=== PATIENT | female | born 1990 | race Two or more races ===

== ENCOUNTER 2024-08-02 00:37 | Emergency (ER) | payer SELFPAY ==
[~2024-08-02] VITALS: Ht 162.6 cm; Wt 119.9 kg
--- NOTE | 2024-08-02 01:08 | ED.PDOC ---
History of Present Illness HPI Comments 33-year-old female presents with a chief complaint of flu-like symptoms x onset Friday (07/30/2024). Patient is presenting with nasal congestion and dry cough. Patient mentions that her household is sick and experiencing the same symptoms. Patient mentions that her children were positive for Influenza A. No other symptoms or modifying factors present at this time. 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 Family History Family History: Reviewed,noncontributory to illness Social History Smoker: Non-Smoker Alcohol: Denies ETOH Use Drugs: Denies Drug Use Lives In: Home Constitutional: denies: chills, diaphoresis, fatigue, fever, malaise, sweats, weakness, others EENTM: reports: nose congestion; denies: blurred vision, double vision, ear bleeding, ear discharge, ear drainage, ear pain, ear ringing, eye pain, eye redness, hearing loss, mouth pain, mouth swelling, nasal discharge, nose bleeding, nose pain, photophobia, tearing, throat pain, throat swelling, voice changes, others Respiratory: reports: cough; denies: hemoptysis, orthopnea, SOB at rest, shortness of breath, SOB with excertion, stridor, wheezing, others Cardiovascular: denies: chest pain, dizzy spells, diaphoresis, Dyspnea on exertion, edema, irregular heart beat, left arm pain, lightheadedness, palpitations, PND, syncope, others Gastrointestinal: denies: abdomen distended, abdominal pain, blood streaked bowels, constipated, diarrhea, dysphagia, difficulty swallowing, hematemesis, melena, nausea, poor appetite, poor fluid intake, rectal bleeding, rectal pain, vomiting, others Genitourinary: denies: abnormal vagina bleeding, burning, dyspareunia, dysuria, flank pain, frequency, hematuria, incontinence, pain, , vagina discharge, urgency, others Neurological: denies: dizziness, fainting, headache, left sided numbness, left sided weakness, numbness, paresthesia, pre-existing deficit, right sided numbness, right sided weakness, seizure, speech problems, tingling, tremors, weakness, others Musculoskeletal: denies: back pain, gout, joint pain, joint swelling, muscle pain, muscle stiffness, neck pain, others Integumetry: denies: bruises, change in color, change in hair/nails, dryness, laceration, lesions, lumps, rash, wounds, others Allergic/Immunocompromised: denies: Difficulty Healing, Frequent Infections, Hives, Itching, others Hematologic/Lymphatic: denies: anemia, blood clots, easy bleeding, easy bruising, swollen glands, others Endocrine: denies: excessive hunger, excessive sweating, excessive thirst, excessive urination, flushing, intolerance to cold, intolerance to heat, unexplained weight gain, unexplained weight loss, others Psychiatric: denies: anxiety, bipolar disorder, depression, hopeless, panic disorder, schizophrenia, sleepless, suicidal, others All Other Systems: Reviewed and Negative Physical Exam General Appearance: No Apparent Distress, Obese HEENT: Normal ENT Inspection, Pharynx Normal, TMs Normal Neck: Full Range of Motion, Non-Tender, Normal, Normal Inspection Respiratory: Chest Non-Tender, Lungs Clear, No Accessory Muscle Use, No Respiratory Distress, Normal Breath Sounds Cardiovascular: No Edema, No JVD, No Murmur, No Gallop, Normal Peripheral Pulses, Regular Rate/Rhythm Breast Exam: Deferred Gastrointestinal: No Organomegaly, Non Tender, No Pulsatile Mass, Normal Bowel Sounds, Soft Genitalia: Deferred Pelvic: Deferred Rectal: Deferred Extremities: No calf tenderness, Normal capillary refill, Normal inspection, Normal range of motion, Non-tender, No pedal edema Musculoskeletal : Apperance: Normal Neurologic: Alert, die sizer II-XII nml as Tested, No Motor Deficits, Normal Affect, Normal Mood, No Sensory Deficits Cerebellar Function: Normal Reflexes: Normal Skin: Dry, Normal Color, Warm Lymphatic: No Adenopathy Was a procedure done? Was a procedure done?: No Differential Dx Considerations may include: Viral syndrome, pneumonia, flu X-Ray, Labs, Meds, VS Vital Signs Date Time Temp Pulse Resp B/P (MAP) Pulse Ox O2 Delivery O2 Flow Rate FiO2 08/02/24 00:47 97.7 89 18 162/116 (131) 98 Lab Test 08/02/24 01:56 Range/Units White Blood Count 5.0 4.4-10.8 10^3/uL Red Blood Count 4.71 4.0-5.20 10^6/uL Hemoglobin 12.5 12.2-16.2 g/dL Hematocrit 37.6 36.0-46.0 % Mean Corpuscular Volume 79.8 L 80.0-100.0 fL Mean Corpuscular Hemoglobin 26.5 L 28.0-32.0 pg Mean Corpuscular Hemoglobin Concent 33.2 32.0-36.0 g/dL Red Cell Distribution Width 15.8 H 11.8-14.3 % Platelet Count 270 140-450 10^3/uL Mean Platelet Volume 7.4 6.9-10.8 fL Neutrophils (%) (Auto) 44.1 37.0-80.0 % Lymphocytes (%) (Auto) 37.6 10.0-50.0 % Monocytes (%) (Auto) 12.8 H 0.0-12.0 % Eosinophils (%) (Auto) 4.5 0.0-7.0 % Basophils (%) (Auto) 1.0 0.0-2.0 % Neutrophils # (Auto) 2.2 1.6-8.6 10 ^3/uL Lymphocytes # (Auto) 1.9 0.4-5.4 10 ^3/uL Monocytes # (Auto) 0.6 0-1.3 10 ^3/uL Eosinophils # (Auto) 0.2 0-0.8 10 ^3/uL Basophils # (Auto) 0.1 0-0.2 10 ^3/uL Nucleated Red Blood Cells 0.1 % Sodium Level 140 136-145 mmol/L Potassium Level 3.9 3.5-5.1 mmol/L Chloride Level 107 98-107 mmol/L Carbon Dioxide Level 27 20-31 mmol/L Anion Gap 6 5-15 Blood Urea Nitrogen 8 L 9-23 mg/dL Creatinine 0.52 L 0.550-1.02 mg/dL Glomerular Filtration Rate Calc 127 >90 mL/min BUN/Creatinine Ratio 15.4 10.0-20.0 Serum Glucose 151 H 74-106 mg/dL Calcium Level 9.4 8.7-10.4 mg/dL Time of 1ST Reevaluation: 01:18 Reevaluation 1ST: Unchanged Patient Education/Counseling: Diagnosis, Treatment, Prognosis Family Education/Counseling: No Family Present Departure 1 Departure Time of Disposition: 04:28 (Patient likely has a virus. Lungs are clear no sign of pneumonia. We will discharge patient home with outpatient follow up) Impression: Primary Impression: Viral syndrome Disposition: 01 HOME / SELF CARE / HOMELESS Condition: Stable Additional Instructions: You likely have a viral illness. It is important to stay well rested and well hydrated. You can take Tylenol and Motrin as needed for pain and fever. For a sore throat you can drink warm tea with honey. You can take [id number] pseudoephedrine for nasal congestion. He should follow up with your regular doctor within 1 week to ensure you are doing better. If your symptoms worsen or you have any other concerns please return to the emergency room. Discharged With: Self Critical Care Note Critical Care Time?: No Stability Stability form required: No I personally scribed for DANITZA CULVER MD ([email or web address]) on 08/02/24 at 01:08. Electronically submitted by Govind Chatman ([email or web address]). DANITZA CULVER MD Aug 02, 2024 01:08
--- NOTE | 2024-08-02 01:42 | DVH ---
CHEST RADIOGRAPH Indication: sob Technique: Frontal and lateral view of the chest was obtained Comparison: None FINDINGS: Lines and Tubes: None Lungs: Clear Pleura: No effusion. No pneumothorax. Cardiomediastinal contours: Unremarkable Bones: Unremarkable IMPRESSION: 1. No evidence of acute disease.
[2024-08-02 02:09] LABS: Eosinophils # (auto) 0.2 10 ^3/uL (0-0.8); Hemoglobin 12.5 g/dL (12.2-16.2); Lymphocytes # (auto) 1.9 10 ^3/uL (0.4-5.4); Monocytes # (auto) 0.6 10 ^3/uL (0-1.3); Monocytes % (auto) 12.8 % (0.0-12.0); Nucleated Red Blood Cells % 0.1 %; Platelet Count (auto) 270 10^3/uL (140-450)
[2024-08-02 02:11] LABS: Basophils # (auto) 0.1 10 ^3/uL (0-0.2); Eosinophils % (auto) 4.5 % (0.0-7.0); Hematocrit 37.6 % (36.0-46.0); Lymphocytes % (auto) 37.6 % (10.0-50.0); Mean Corpuscular Hemoglobin 26.5 pg (28.0-32.0); Mean Corpuscular Hgb Conc. 33.2 g/dL (32.0-36.0); Mean Corpuscular Volume 79.8 fL (80.0-100.0); Neutrophils # (auto) 2.2 10 ^3/uL (1.6-8.6); Neutrophils % (auto) 44.1 % (37.0-80.0); Red Blood Cells 4.71 10^6/uL (4.0-5.20); Red Cell Distribution Width 15.8 % (11.8-14.3)
[2024-08-02 02:16] LABS: Chloride 107 mmol/L (98-107); Potassium 3.9 mmol/L (3.5-5.1); Sodium 140 mmol/L (136-145)
[2024-08-02 02:17] LABS: Anion Gap 6 (5-15); Carbon Dioxide 27 mmol/L (20-31)
[2024-08-02 02:18] LABS: Calcium 9.4 mg/dL (8.7-10.4)
[2024-08-02 02:23] LABS: BUN/Creatinine Ratio 15.4 (10.0-20.0); Blood Urea Nitrogen 8 mg/dL (9-23); Glucose 151 mg/dL (74-106)
[2024-08-02] MEDS: ACETAMINOPHEN 325 MG TAB PO ONE (05:00)
[2024-08-02] MEDS: KETOROLAC TROMETH 30 MG/ML 1ML VIAL IM ONE (05:00)
[2024-08-02 05:48] VITALS: BP 153/97; PULSE 83; RESP 18; TEMP 97.9; O2SAT 95
== END 2024-08-02 05:51 | disposition home or self-care (01) ==
LOC: ER 00:37
DX: J10.1 Influenza due to other identified influenza virus with other respiratory manifestations (principal)
CPT/HCPCS: 36415; 71046; 80048; 85025; 96372; 99284; J1885

== ENCOUNTER 2025-03-31 00:57 | Inpatient (IN) | payer OTHER ==
[~2025-03-31] VITALS: Ht 160 cm; Wt 108.0 kg
--- NOTE | 2025-03-31 02:16 | ED.PDOC ---
GI ASSESSMENT HPI Comments HPI: 34 year old female presents to the emergency department with a chief complaint of abdominal pain onset 2 day. Patient states she has been experiencing upper abdominal pain as well as nausea, vomiting, diarrhea for the past 2 days. She noticed symptoms worsened the past 6 hours. She has been on Ozempic for the past 3 months, dose was raised to 1 mg 2 days ago, prior to symptoms. She noticed vomit is a dark red color, has about 3 episodes of N/V a day, diarrhea is black, has about 12 episodes a day. She has taken Tylenol, Imodium for symptoms with no improvement. Denies chest pain, shortness of breath, dizziness, fever, chills, dysuria, hematuria, recent travel, sick contact. No other symptoms or modifying factors present at this time. Initial Vitals BP: 149/96 HR: 88 RR: 18 O2: 98% Temp: 98.3 F Past Medical History: Denies Past Surgical History: cholecystectomy Social History: Denies ETOH, smoking, and drug use. Medications: Ozepmic Allergies: NKDA HPI: Poor Historian. REVIEW OF SYSTEMS: CONSTITUTIONAL: Denies acute: fever, diaphoresis, chills, generalized weakness. HEAD: Denies acute: headache, photophobia Eyes: Denies acute: Double vision, vision loss, eye pain, eye discharge. EARS: Denies acute: tinnitus, hearing loss, ear discharge, ear pain, THROAT: Denies acute: sore throat, swelling, difficulty swallowing , pain with swallowing, change in voice. NECK: Denies acute: neck pain, neck swelling, stiff neck. HEART: Denies acute : chest pain, palpitations, LUNGS: Denies acute: SOB, wheezing, cough, hemoptysis ABDOMEN: Denies acute: hematemesis, hematochezia SKIN: Denies acute: rash, redness, lesions, itchiness. EXTREMITIES: Denies acute: calf pain, numbness, tingling, weakness, denies pain in extremity. Denies acute: Low back pain. Neuro: Denies acute: focal neurological deficit, motor or sensory focal neurological deficit, tremors, seizure like activity, confusion, dizziness, change in mental status, loss of bowel or bladder function, cauda equina like symptoms. : Denies acute: dysuria, hematuria, flank pain, increase in urinary frequency. PSYCH: Denies acute: hallucination, suicidal ideation, homicidal ideation. FEMALE: Denies acute: abnormal vaginal bleeding, foul odor, unusual discharge. PHYSICAL EXAM: General: ---[id number]-----acute distress, awake and alert. Head: normocephalic, atraumatic. Neck: supple, trachea is midline, no swelling. Throat: Normal phonation. Eyes:, no erythema, no purulent discharge, no proptosis, no icterus. Heart: regular rate, regular rhythm, no significant murmur appreciated. Lungs: no apparent respiratory distress, Able to speak in full sentences. No wheezing, no rhonchi, no crackles. No stridors Clear to auscultation bilaterally. Abdomen: Epigastric/right upper quadrant tender to palpation, non distended, soft, no guarding, no rebound, + bowel sounds. Obese Neuro: Awake, Alert, oriented to name, self, situation, follows commands GCS=15. Speech is normal. Skin: no petechia, no purpura, no cyanosis, non-pale, not jaundice. Lower extremities: --no - Pitting edema no deformity, no focal swelling, no calf TTP. Makes eye contact. moves all four extremities. Face: no apparent facial droop. Ambulating in the ED independently. ED COURSE: DISCLAIMER: This medical document was created using an electronic medical record system with voice recognition software and computerized dictation system. Although this document has been carefully reviewed, there might still be some phonetic and typographical errors. Occasional wrong-word or "sound-alike" substitutions may have occurred due to the inherent limitations of voice recognition software. These areas are purely typographical due to imperfections of the software programs and do not reflect any compromise in the patient's medical care. Please read the chart carefully and recognize, using context, where these substitutions have occurred. Chief Complaint: Abdominal Pain Time Seen by MD: 02:30 Reviewed Notes: Medications, Allergies Allergies: Coded Allergies: NO KNOWN ALLERGIES (Unverified , 08/02/24) Home Meds Active Scripts Ondansetron Odt 4MG Tab (ZOFRAN PO) 4 Mg Tb, 4 MG PO Q8HPRN PRN for 3 Days, #9 TAB ODT TAB-DISSOLVE IN MOUTH, THEN SWALLOW Prov:SAYDA TOUSSAINT DO 03/31/25 Information Source: Patient Mode of Arrival: Ambulatory Timing: Days Duration: Since onset Prehospital treatment: None Quality: Sharp Vomitus: Other (dark red ) Stool: Black Severity: Moderate Recent: None Recent Hx of: None Pain Location: Other Modifying Factors: Nothing Associated sign and symptoms: Nausea, Vomiting, Diarrhea, Abdominal Pain Past Medical History PAST MEDICAL HISTORY: Denies Surgical History: Cholecystectomy 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 Was a procedure done?: No X-Ray, Labs, Meds, VS Vital Signs Date Time Temp Pulse Resp B/P (MAP) Pulse Ox O2 Delivery O2 Flow Rate FiO2 03/31/25 03:13 98.4 98 16 123/87 (99) 96 98.4 03/31/25 00:57 98.3 88 18 149/96 98 98.3 Lab Test 03/31/25 05:30 03/31/25 01:58 Range/Units Urine Color Pending Urine Clarity Pending Urine pH Pending Urine Specific Harrison Pending Urine Protein Pending Urine Ketones Pending Urine Blood Pending Urine Nitrite Pending Urine Bilirubin Pending Urine Urobilinogen Pending Urine Leukocyte Esterase Pending Urine RBC Pending Urine Microscopic WBC Pending Urine Squamous Epithelial Cells Pending Urine Bacteria Pending Urine Glucose Pending Urine Test Pending White Blood Count 14.9 H 4.4-10.8 10^3/uL Red Blood Count 5.47 H 4.0-5.20 10^6/uL Hemoglobin 14.3 12.2-16.2 g/dL Hematocrit 42.9 36.0-46.0 % Mean Corpuscular Volume 78.5 L 80.0-100.0 fL Mean Corpuscular Hemoglobin 26.1 L 28.0-32.0 pg Mean Corpuscular Hemoglobin Concent 33.3 32.0-36.0 g/dL Red Cell Distribution Width 16.6 H 11.8-14.3 % Platelet Count 405 140-450 10^3/uL Mean Platelet Volume 7.3 6.9-10.8 fL Neutrophils (%) (Auto) 78.5 37.0-80.0 % Lymphocytes (%) (Auto) 13.3 10.0-50.0 % Monocytes (%) (Auto) 6.4 0.0-12.0 % Eosinophils (%) (Auto) 1.7 0.0-7.0 % Basophils (%) (Auto) 0.1 0.0-2.0 % Neutrophils # (Auto) 11.7 H 1.6-8.6 10 ^3/uL Lymphocytes # (Auto) 2.0 0.4-5.4 10 ^3/uL Monocytes # (Auto) 0.9 0-1.3 10 ^3/uL Eosinophils # (Auto) 0.3 0-0.8 10 ^3/uL Basophils # (Auto) 0 0-0.2 10 ^3/uL Nucleated Red Blood Cells 0.0 % Sodium Level 136 136-145 mmol/L Potassium Level 3.5 3.5-5.1 mmol/L Chloride Level 104 98-107 mmol/L Carbon Dioxide Level 20 20-31 mmol/L Anion Gap 12 5-15 Blood Urea Nitrogen 16 9-23 mg/dL Creatinine 0.66 0.550-1.02 mg/dL Glomerular Filtration Rate Calc 119 >90 mL/min BUN/Creatinine Ratio 24.2 H 10.0-20.0 Serum Glucose 129 H 74-106 mg/dL Lactic Acid Level 1.0 0.4-2.0 mmol/L Calcium Level 9.6 8.7-10.4 mg/dL Magnesium Level 2.1 1.6-2.6 mg/dL Total Bilirubin 0.8 0.2-1.0 mg/dL Aspartate Amino Transferase (AST) 17 13-40 U/L Alanine Aminotransferase (ALT) 15 7-40 U/L Alkaline Phosphatase 95 46-116 U/L Troponin I High Sensitivity < 3 L </=34 ng/L Total Protein 8.9 H 5.7-8.2 g/dL Albumin 4.9 H 3.2-4.8 g/dL Lipase 44 12-53 U/L Current Medications Medications (Trade) Dose Ordered Sig/Tuan Route Start Time Stop Time Status Last Admin Sodium Chloride 1,000 ml @ 1,000 mls/hr Q1H ONCE IV 03/31/25 01:45 03/31/25 02:44 DC 03/31/25 05:[address] [address] Ph: [phone] DIAGNOSTIC IMAGING Diagnostic Imaging Report : [id number] Signed PATIENT: TITA NAIKACCT: [id number] UNIT: [id number] : 1990 LOC: ER ROOM / BED: / AGE / SEX: 34 / F ADM STATUS: REG ER SERVICE 0305 ORDERING PHYSICIAN: SAYDA TOUSSAINT DO PROCEDURE(s): ABPL - CT AB PEL WO CON-NO ORAL OR IV REASON: upper abd pain, n/v/d ORDER NUMBER(s): [id number], ACCESSION NUMBER(s): [id number] Exam: CT CT AB PEL WO CON-NO ORAL OR IV History: upper abd pain, n/v/d Comparison Study: None TECHNIQUE: Multidetector CT of the abdomen was performed from lung bases to pubic symphysis. Imaging was performed without IV contrast. Axial, coronal and sagittal multiplanar reformats were obtained from the axial data set by the technologist. Radiation Dose Information: Dose-length product is 1371.67 mGy*cm FINDINGS: Limited sections of the lung bases demonstrate no focal pulmonary mass. The liver, spleen, pancreas, and both adrenal glands demonstrate no acute findings. The gallbladder is removed. The stomach is unremarkable. The small bowel loops are not dilated. The appendix is normal. No colonic obstruction. Colonic diverticulosis without acute diverticulitis. Bilateral kidneys are unremarkable. No hydronephrosis. The urinary bladder is partially distended. No significant lymphadenopathy. 4.7 x 4.8 cm left ovarian cyst. No free air or free fluid. The aorta and IVC demonstrate no acute findings. Visualized osseous structures demonstrate no acute abnormality. IMPRESSION: 1. No acute intra-abdominal process. 2. Colonic diverticulosis without acute diverticulitis. ATED BY: LUCY AIKEN MD DICTATED DATE/TIME: 03/31/25455 SIGNED BY: LUCY AIKEN MD SIGNED DATE/TIME: 03/31/25455 CC: [address], [place] - [address] Ph: [phone] DIAGNOSTIC IMAGING Diagnostic Imaging Report : [id number] Signed PATIENT: TITA NAIKACCT: [id number] UNIT: [id number] : 1990 LOC: ER ROOM / BED: / AGE / SEX: 34 / F ADM STATUS: REG ER SERVICE 0143 ORDERING PHYSICIAN: SAYDA TOUSSAINT DO PROCEDURE(s): ABDL - ABDOMEN LIMITED REASON: upper abd pain ORDER NUMBER(s): [id number], ACCESSION NUMBER(s): [id number] INDICATION: upper abd pain TECHNIQUE: Multiple real-time sonographic images were obtained of the Abdomen. COMPARISON: None FINDINGS: PANCREAS: not well seen LIVER: measures 17.4 cm. increased echotexture. No mass. GALLBLADDER: surgically absent COMMON BILE DUCT: not well visualized RIGHT KIDNEY: Measures 11.9 cm. Normal in echogenicity. No mass. No urinary stones. No hydronephrosis. IMPRESSION: 1. Limited examination due to body habitus. 2. Hepatic steatosis and hepatomegaly. ATED BY: LUCY AIKEN MD DICTATED DATE/TIME: 03/31/25312 SIGNED BY: LUCY AIKEN MD SIGNED DATE/TIME: 03/31/25312 CC: Time of 1ST Reevaluation: 03:00 Reevaluation 1ST: Unchanged Patient Education/Counseling: Diagnosis, Treatment Family Education/Counseling: No Family Present Comments I placed the patient up for admission for possible GI bleed versus other etiologies. Departure 1 Departure Time of Disposition: 05:11 Impression: Primary Impression: Medication adverse effect Qualified Codes: T50.905A - Adverse effect of unspecified drugs, medicaments and biological substances, initial encounter Additional Impressions: Abdominal pain Nausea vomiting and diarrhea Melena Disposition: ADMITTED INPATIENT Admit to: [facility] Condition: Guarded Additional Instructions: Additional instructions: You MUST follow-up with your primary care/family doctor in 1 to 2 days. If you are unable to see your primary care/family doctor, please return to our emergency room for re-assessment and re-evaluation in 1 to 2 days. Return to the emergency room here in our facility or to the nearest ER [facility] if your symptoms change or worsen. CONSULTATIONS: you MUST Follow-up for consultation as soon as possible with: -gastroenterology in 1-2 days. Please call for appointment You MUST call the consultants office yourself to make an appointment. You may need to arrange that through your insurance and/or your primary/family doctor. If you are unable to see the crop consultant in 1 to 2 days, you must return to our emergency room (or any other ER of your choice) for re-assessment and re- evaluation. Adequate fluid hydration. Avoid fatty greasy spicy food. Avoid caffeinated products. Avoid NSAIDs. Below is a copy of your radiological report for follow up: [place] [address] Ph: [phone] DIAGNOSTIC IMAGING Diagnostic Imaging Report : [id number] Signed PATIENT: TITA NAIK ACCT: [id number] UNIT: [id number] : 1990 LOC: ER ROOM / BED: / AGE / SEX: 34 / F ADM STATUS: REG ER SERVICE 0305 ORDERING PHYSICIAN: SAYDA TOUSSAINT DO PROCEDURE(s): ABPL - CT AB PEL WO CON-NO ORAL OR IV REASON: upper abd pain, n/v/d ORDER NUMBER(s): [id number], ACCESSION NUMBER(s): [id number] Exam: CT CT AB PEL WO CON-NO ORAL OR IV History: upper abd pain, n/v/d Comparison Study: None TECHNIQUE: Multidetector CT of the abdomen was performed from lung bases to pubic symphysis. Imaging was performed without IV contrast. Axial, coronal and sagittal multiplanar reformats were obtained from the axial data set by the technologist. Radiation Dose Information: Dose-length product is 1371.67 mGy*cm FINDINGS: Limited sections of the lung bases demonstrate no focal pulmonary mass. The liver, spleen, pancreas, and both adrenal glands demonstrate no acute findings. The gallbladder is removed. The stomach is unremarkable. The small bowel loops are not dilated. The appendix is normal. No colonic obstruction. Colonic diverticulosis without acute diverticulitis. Bilateral kidneys are unremarkable. No hydronephrosis. The urinary bladder is partially distended. No significant lymphadenopathy. 4.7 x 4.8 cm left ovarian cyst. No free air or free fluid. The aorta and IVC demonstrate no acute findings. Visualized osseous structures demonstrate no acute abnormality. IMPRESSION: 1. No acute intra-abdominal process. 2. Colonic diverticulosis without acute diverticulitis. ATED BY: LUCY AIKEN MD DICTATED DATE/TIME: 03/31/25455 SIGNED BY: LUCY AIKEN MD SIGNED DATE/TIME: 03/31/25455 CC: [place] [address] Ph: [phone] DIAGNOSTIC IMAGING Diagnostic Imaging Report : [id number] Signed PATIENT: TITA NAIK ACCT: [id number] UNIT: [id number] : 1990 LOC: ER ROOM / BED: / AGE / SEX: 34 / F ADM STATUS: REG ER SERVICE 014 ORDERING PHYSICIAN: SAYDA TOUSSAINT DO PROCEDURE(s): ABDL - ABDOMEN LIMITED REASON: upper abd pain ORDER NUMBER(s): [id number], ACCESSION NUMBER(s): [id number] INDICATION: upper abd pain TECHNIQUE: Multiple real-time sonographic images were obtained of the Abdomen. COMPARISON: None FINDINGS: PANCREAS: not well seen LIVER: measures 17.4 cm. increased echotexture. No mass. GALLBLADDER: surgically absent COMMON BILE DUCT: not well visualized RIGHT KIDNEY: Measures 11.9 cm. Normal in echogenicity. No mass. No urinary stones. No hydronephrosis. IMPRESSION: 1. Limited examination due to body habitus. 2. Hepatic steatosis and hepatomegaly. ATED BY: LUCY AIKEN MD DICTATED DATE/TIME: 03/31/25312 SIGNED BY: LUCY AIKEN MD SIGNED DATE/TIME: 03/31/25312 CC: e-Prescriptions Ondansetron Odt 4MG Tab (ZOFRAN PO) 4 Mg Tb 4 MG PO Q8HPRN PRN for 3 Days, #9 TAB ODT TAB-DISSOLVE IN MOUTH, THEN SWALLOW Prov: SAYDA TOUSSAINT DO 03/31/25 Discharged With: Self Critical Care Note Critical Care Time?: No I personally scribed for SAYDA TOUSSAINT DO ([email or web address]) on 03/31/25 at 02:16. Electronically submitted by Megha Pickens ([email or web address]). I personally scribed for SAYDA TOUSSAINT DO ([email or web address]) on 03/31/25 at 02:35. Electronically submitted by Megha Pickens ([email or web address]). I personally scribed for SAYDA TOUSSAINT DO ([email or web address]) on 03/31/25 at 02:42. Electronically submitted by Megha Pickens ([email or web address]). I personally scribed for SYADA TOUSSAINT DO ([email or web address]) on 03/31/25 at 05:07. Electronically submitted by Megha Pickens ([email or web address]). I personally scribed for SAYDA TOUSSAINT DO ([email or web address]) on 03/31/25 at 05:13. Electronically submitted by Megha Pickens ([email or web address]). SAYDA TOUSSAINT DO Mar 31, 2025 02:16
[2025-03-31 02:26] LABS: Nucleated Red Blood Cells % 0.0 %
[2025-03-31 02:29] LABS: Hematocrit 42.9 % (36.0-46.0); Hemoglobin 14.3 g/dL (12.2-16.2); Mean Corpuscular Hemoglobin 26.1 pg (28.0-32.0); Mean Corpuscular Volume 78.5 fL (80.0-100.0)
[2025-03-31 02:35] LABS: Alanine Aminotransferase 15 U/L (7-40); Alkaline Phosphatase 95 U/L (46-116); Anion Gap 12 (5-15); BUN/Creatinine Ratio 24.2 (10.0-20.0); Blood Urea Nitrogen 16 mg/dL (9-23); Calcium 9.6 mg/dL (8.7-10.4); Carbon Dioxide 20 mmol/L (20-31); Chloride 104 mmol/L (98-107); Lipase 44 U/L (12-53); Magnesium 2.1 mg/dL (1.6-2.6); Potassium 3.5 mmol/L (3.5-5.1); Sodium 136 mmol/L (136-145)
[2025-03-31 02:36] LABS: Bilirubin, Total 0.8 mg/dL (0.2-1.0)
[2025-03-31 02:38] LABS: Albumin 4.9 g/dL (3.2-4.8); Glucose 129 mg/dL (74-106); Total Protein 8.9 g/dL (5.7-8.2)
--- NOTE | 2025-03-31 03:15 | DVH ---
INDICATION: upper abd pain TECHNIQUE: Multiple real-time sonographic images were obtained of the Abdomen. COMPARISON: None FINDINGS: PANCREAS: not well seen LIVER: measures 17.4 cm. increased echotexture. No mass. GALLBLADDER: surgically absent COMMON BILE DUCT: not well visualized RIGHT KIDNEY: Measures 11.9 cm. Normal in echogenicity. No mass. No urinary stones. No hydronephrosi s. IMPRESSION: 1. Limited examination due to body habitus. 2. Hepatic steatosis and hepatomegaly.
--- NOTE | 2025-03-31 04:58 | DVH ---
Exam: CT CT AB PEL WO CON-NO ORAL OR IV History: upper abd pain, n/v/d Comparison Study: None TECHNIQUE: Multidetector CT of the abdomen was performed from lung bases to pubic symphysis. Imaging was performed without IV contrast. Axial, coronal and sagittal multiplanar reformats were obtained fr om the axial data set by the technologist. Radiation Dose Information: Dose-length product is 1371.67 mGy*cm FINDINGS: Limited sections of the lung bases demonstrate no focal pulmonary mass. The liver, spleen, pancreas, and both adrenal glands demonstrate no acute findings. The gallbladder is removed. The stomach is unremarkable. The small bowel loops are not dilated. The appendix is normal. No colonic obstruction. Colonic diverticulosis without acute diverticulitis. Bilateral kidneys are unremarkable. No hydronephrosis. The urinary bladder is partially distended. No significant lymphadenopathy. 4.7 x 4.8 cm left ovarian cyst. No free air or free fluid. The aorta and IVC demonstrate no acute findings. Visualized osseous structures demonstrate no acute abnormality. IMPRESSION: 1. No acute intra-abdominal process. 2. Colonic diverticulosis without acute diverticulitis.
[2025-03-31] MEDS ORDERED: ZOFR4T PO (05:13)
[2025-03-31] MEDS: SODIUM CHLORIDE 0.9% 1,000 ML IV ONE (05:54)
[2025-03-31] MEDS: PANTOPRAZOLE 40 MG/10 ML VIAL INJ IV ONE (05:58)
[2025-03-31] MEDS: ONDANSETRON HCL 4 MG/2 ML VIAL IV ONE (05:58)
[2025-03-31 06:03] LABS: Urine Protein, UAD 1+ (Negative)
--- NOTE | 2025-03-31 07:20 | DVHHP2 ---
Admitting Diagnosis: Abdominal pain History of Present Illness 34 year old female presents to the emergency department with a chief complaint of abdominal pain onset 2 day. Patient states she has been experiencing upper abdominal pain as well as nausea, vomiting, diarrhea for the past 2 days. She noticed symptoms worsened the past 6 hours. She has been on Ozempic for the past 3 months, dose was raised to 1 mg 2 days ago, prior to symptoms. She noticed vomit is a dark red color, has about 3 episodes of N/V a day, diarrhea is black, has about 12 episodes a day. She has taken Tylenol, Imodium for symptoms with no improvement. Denies chest pain, shortness of breath, dizziness, fever, chills, dysuria, hematuria, recent travel, sick contact. No other symptoms or modifying factors present at this time. Past Medical History: Denies Past Surgical History: cholecystectomy Social History: Denies ETOH, smoking, and drug use. Medications: Ozepmic Allergies: NKDA REVIEW OF SYSTEMS: CONSTITUTIONAL: Denies acute: fever, diaphoresis, chills, generalized weakness. HEAD: Denies acute: headache, photophobia Eyes: Denies acute: Double vision, vision loss, eye pain, eye discharge. EARS: Denies acute: tinnitus, hearing loss, ear discharge, ear pain, THROAT: Denies acute: sore throat, swelling, difficulty swallowing , pain with swallowing, change in voice. NECK: Denies acute: neck pain, neck swelling, stiff neck. HEART: Denies acute : chest pain, palpitations, LUNGS: Denies acute: SOB, wheezing, cough, hemoptysis ABDOMEN: Denies acute: hematemesis, hematochezia SKIN: Denies acute: rash, redness, lesions, itchiness. EXTREMITIES: Denies acute: calf pain, numbness, tingling, weakness, denies pain in extremity. Denies acute: Low back pain. Neuro: Denies acute: focal neurological deficit, motor or sensory focal neurological deficit, tremors, seizure like activity, confusion, dizziness, change in mental status, loss of bowel or bladder function, cauda equina like symptoms. : Denies acute: dysuria, hematuria, flank pain, increase in urinary frequency. PSYCH: Denies acute: hallucination, suicidal ideation, homicidal ideation. FEMALE: Denies acute: abnormal vaginal bleeding, foul odor, unusual discharge. PAST MEDICAL HISTORY: Denies Surgical History: Cholecystectomy [employer] History: Denies all [employer]TER Hx Family History Family History: Reviewed,noncontributory to illness Social History Smoker: Non-Smoker Alcohol: Denies ETOH Use Drugs: Denies Drug Use Lives In: Home Allergies: Coded Allergies: NO KNOWN ALLERGIES (Unverified , 08/02/24) Home Meds Active Scripts Ondansetron Odt 4MG Tab (ZOFRAN PO) 4 Mg Tb, 4 MG PO Q8HPRN PRN for 3 Days, #9 TAB ODT TAB-DISSOLVE IN MOUTH, THEN SWALLOW Prov:SHELLI TOUSSAINTRylie Velazquez DO 03/31/25 Current Medications Current Medications Medications (Trade) Dose Ordered Sig/Tuan Route PRN Reason Start Time Stop Time Status Last Admin Ceftriaxone Sodium 50 ml @ 100 mls/hr DAILY@09 IV 03/31/25 09:00 Pantoprazole Sodium (Protonix Tablet) 40 mg DAILY@0600 PO 04/01/25 06:00 Sodium Chloride (Saline Lock Ns) 10 ml Q8HR IV 03/31/25 14:00 Docusate Sodium (Colace Capsule) 100 mg BIDPRN PRN PO FOR CONSTIPATION 03/31/25 07:30 Acetaminophen (Tylenol Tablet) 650 mg Q6HP PRN PO PAIN SCALE 1-3 OR TEMP>100.4 03/31/25 07:30 Acetaminophen/ Hydrocodone Bitart ([employer] [place] 5/325MG Tab) 1 tab Q4HP PRN PO MODERATE PAIN (4-6 PAIN SCALE) 03/31/25 07:30 Ondansetron HCl (Zofran) 4 mg Q4HP PRN IV NAUSEA / VOMITING 03/31/25 07:30 Enoxaparin Sodium (Lovenox) 40 mg DAILY SC 03/31/25 10:00 Vital Signs Vital Signs Date Time Temp Pulse Resp B/P (MAP) Pulse Ox O2 Delivery O2 Flow Rate FiO2 03/31/25 06:04 98.2 83 16 132/80 (97) 98 98.2 Physical Exam Generally-34 years old woman, morbidly obese, sitting on chair. Mild distress HEENT-atraumatic normocephalic Heart-regular rate and rhythm Lungs clear to auscultate Abdomen soft, mild tender epigastrium, nondistended Musculoskeletal-no edema cyanosis Neuro-AO x3, no focal deficits SEPSIS Sepsis Screen Date sepsis recognized/suspect: Mar 31, 2025 Time Sepsis recognized/suspect: 005 Recent Procedure: No On Antibiotic Therapy: No Respiratory Rate >20: No Heart Rate >90: Yes Temp<36 C (96.8 F) or >38.3 C: No SBP <90 or MAP <65 mmHG: No New Acute Mental Status Change: No Is the patient on CPAP, BIPAP,: No Physician Orders Associate Pastor (03/31/25 ) Abdomen Limited (03/31/25 01:43) Ova & Parasite Exam (03/31/25 02:44) Stool Bacterial Culture (03/31/25 02:44) Clostridium Difficile Toxin (03/31/25 02:44) Stool Occult Blood (03/31/25 02:44) Stool Wbc (03/31/25 02:44) Ct Ab Pel Wo Con-No Oral Or Iv (03/31/25 03:05) Ceftriaxone 1gm/50ml D5w (Rocephin) (03/31/25 09:00) Urine Bacterial Culture (03/31/25 07:20) Blood Culture (03/31/25 07:20) Pantoprazole Tablet (Protonix Tablet) (04/01/25 06:00) Admit (03/31/25 07:20) Code Status (03/31/25 07:20) Vital Signs .PER UNIT PROTOCOL (03/31/25 07:20) Review Orders With Adm.Md (03/31/25 07:20) Encourage Activity As Tolerate (03/31/25 07:20) Regular Diet (03/31/25 Breakfast) Sodium Chloride Lock (Saline Lock Ns) (03/31/25 14:00) Docusate Sodium Capsule (Colace Capsule) (03/31/25 07:30) Acetaminophen Tablet (Tylenol Tablet) (03/31/25 07:30) Notify Md Of Changes From Base (03/31/25 07:20) Advance Directive (03/31/25 07:20) Patient Condition (03/31/25 07:20) Allergies (03/31/25 07:20) Hydrocodone-Acet 5/325mg Tab ([employer] [place] 5/32 (03/31/25 07:30) Ondansetron Hcl (Zofran) (03/31/25 07:30) Enoxaparin Sodium (Lovenox) (03/31/25 10:00) Comprehensive Metabolic Panel (04/01/25 05:00) Comprehensive Metabolic Panel (04/02/25 05:00) Comprehensive Metabolic Panel (04/03/25 05:00) Comprehensive Metabolic Panel (04/04/25 05:00) Comprehensive Metabolic Panel (04/05/25 05:00) Complete Blood Count (04/01/25 05:00) Complete Blood Count (04/02/25 05:00) Complete Blood Count (04/03/25 05:00) Complete Blood Count (04/04/25 05:00) Complete Blood Count (04/05/25 05:00) Lactated Ringer's (03/31/25 07:30) Vital Signs Date Time Temp Pulse Resp B/P (MAP) Pulse Ox O2 Delivery O2 Flow Rate FiO2 03/31/25 06:04 98.2 83 16 132/80 (97) 98 98.2 03/31/25 03:13 98.4 98 16 123/87 (99) 96 98.4 03/31/25 00:57 98.3 88 18 149/96 98 98.3 Laboratory Tests Test 03/31/25 01:58 Lactic Acid Level 1.0 mmol/L (0.4-2.0) White Blood Count 14.9 10^3/uL (4.4-10.8) H Medications Medications Dose Ordered Sig/Tuan Route Start Time Stop Time Status Last Admin Dose Admin Ciprofloxacin 200 ml @ 200 mls/hr ONCE ONCE IV 03/31/25 06:15 03/31/25 07:14 DC 03/31/25 07:39 Ondansetron HCl 8 mg ONCE ONCE IV 03/31/25 01:45 03/31/25 01:46 DC 03/31/25 05:58 Pantoprazole Sodium 40 mg ONCE ONCE IV 03/31/25 02:45 03/31/25 02:51 DC 03/31/25 05:58 Sodium Chloride 1,000 ml @ 1,000 mls/hr Q1H ONCE IV 03/31/25 01:45 03/31/25 02:44 DC 03/31/25 05:54 Results Labs Test 03/31/25 05:30 03/31/25 01:58 Range/Units Urine Color Yellow Yellow Urine Clarity Turbid H Clear Urine pH 6.0 5.0-9.0 Urine Specific [place] 1.042 H 1.001-1.035 Urine Protein 1+ H Negative Urine Ketones Trace Negative Urine Blood Negative Negative /uL Urine Nitrite Negative Negative Urine Bilirubin Negative Negative Urine Urobilinogen Normal Negative mg/dL Urine Leukocyte Esterase 3+ Negative /uL Urine RBC None seen 0 - 4 /hpf Urine Microscopic WBC 124 H 0-5 /HPF Urine Squamous Epithelial Cells Mod <5 /hpf Urine Bacteria None seen None Seen /hpf Urine Mucus Moderate None Seen Urine Glucose Normal Normal mg/dL Urine Test Negative Negative White Blood Count 14.9 H 4.4-10.8 10^3/uL Red Blood Count 5.47 H 4.0-5.20 10^6/uL Hemoglobin 14.3 12.2-16.2 g/dL Hematocrit 42.9 36.0-46.0 % Mean Corpuscular Volume 78.5 L 80.0-100.0 fL Mean Corpuscular Hemoglobin 26.1 L 28.0-32.0 pg Mean Corpuscular Hemoglobin Concent 33.3 32.0-36.0 g/dL Red Cell Distribution Width 16.6 H 11.8-14.3 % Platelet Count 405 140-450 10^3/uL Mean Platelet Volume 7.3 6.9-10.8 fL Neutrophils (%) (Auto) 78.5 37.0-80.0 % Lymphocytes (%) (Auto) 13.3 10.0-50.0 % Monocytes (%) (Auto) 6.4 0.0-12.0 % Eosinophils (%) (Auto) 1.7 0.0-7.0 % Basophils (%) (Auto) 0.1 0.0-2.0 % Neutrophils # (Auto) 11.7 H 1.6-8.6 10 ^3/uL Lymphocytes # (Auto) 2.0 0.4-5.4 10 ^3/uL Monocytes # (Auto) 0.9 0-1.3 10 ^3/uL Eosinophils # (Auto) 0.3 0-0.8 10 ^3/uL Basophils # (Auto) 0 0-0.2 10 ^3/uL Nucleated Red Blood Cells 0.0 % Sodium Level 136 136-145 mmol/L Potassium Level 3.5 3.5-5.1 mmol/L Chloride Level 104 98-107 mmol/L Carbon Dioxide Level 20 20-31 mmol/L Anion Gap 12 5-15 Blood Urea Nitrogen 16 9-23 mg/dL Creatinine 0.66 0.550-1.02 mg/dL Glomerular Filtration Rate Calc 119 >90 mL/min BUN/Creatinine Ratio 24.2 H 10.0-20.0 Serum Glucose 129 H 74-106 mg/dL Lactic Acid Level 1.0 0.4-2.0 mmol/L Calcium Level 9.6 8.7-10.4 mg/dL Magnesium Level 2.1 1.6-2.6 mg/dL Total Bilirubin 0.8 0.2-1.0 mg/dL Aspartate Amino Transferase (AST) 17 13-40 U/L Alanine Aminotransferase (ALT) 15 7-40 U/L Alkaline Phosphatase 95 46-116 U/L Troponin I High Sensitivity < 3 L </=34 ng/L Total Protein 8.9 H 5.7-8.2 g/dL Albumin 4.9 H 3.2-4.8 g/dL Lipase 44 12-53 U/L Primary Diagnosis Acute urinary tract infection Sepsis Plan UA positive for infection IV fluids Check lactic acid Ceftriaxone 1 g q.day for urinary tract infection Check urine culture , blood culture Pain control Antiemetic Full code Lovenox for DVT prophylaxis PPI for GI prophylaxis Plan discussed with: Patient Problems List: (1) UTI (urinary tract infection) Date of Service: Mar 31, 2025 Billing Provider: CELESTINE SIMPSON MD Common Visit Codes: [id number] INP/OBS CARE (HIGH) CELESTINE SIMPSON MD Mar 31, 2025 07:20
[2025-03-31] MEDS ORDERED: DOCUSATE SOD 100 MG CAP PO PRN (07:30)
[2025-03-31] MEDS ORDERED: ACETAMINOPHEN 325 MG TAB PO PRN (07:30)
[2025-03-31] MEDS: CIPROFLOXACIN 400MG/200ML 200 ML IV ONE (07:39)
[2025-03-31 08:30] VITALS: PULSE 92; RESP 18; O2SAT 98
[2025-03-31] MEDS: cefTRIAXone 1GM/50ML D5W 50 ML IV SCH (10:03)
[2025-03-31] MEDS: ENOXAPARIN SOD 40 MG/0.4 ML SYRINGE SC SCH (10:04)
[2025-03-31] MEDS: LACTATED RINGER'S 1,000 ML IV ONE (10:52)
[2025-03-31] MEDS: HYDROcodone-ACET 5/325MG TAB PO PRN (12:48)
[2025-03-31] MEDS: SODIUM CHLOR 0.9% PF (SALINE LOCK) 10ML VIAL/SYR IV SCH (13:52)
[2025-03-31 17:00] VITALS: BP 117/78; PULSE 75; RESP 18; TEMP 98; O2SAT 96
[2025-03-31] MEDS ORDERED: CHOL20007 PO (17:58)
[2025-03-31] MEDS ORDERED: AML5T PO (17:58)
[2025-03-31 19:20] VITALS: PULSE 86; RESP 18; O2SAT 97
[2025-03-31] MEDS: ONDANSETRON HCL 4 MG/2 ML VIAL IV PRN (19:54)
[2025-03-31 21:00] VITALS: BP 124/78; PULSE 86; RESP 18; TEMP 98.5; O2SAT 97
[2025-04-01 01:35] VITALS: BP 109/62; PULSE 72; RESP 18; TEMP 97.8; O2SAT 94
[2025-04-01 04:58] VITALS: BP 114/71; PULSE 75; RESP 19; TEMP 97.9; O2SAT 95
[2025-04-01] MEDS: PANTOPRAZOLE 40 MG TAB PO SCH (05:49)
[2025-04-01 05:57] LABS: Hematocrit 36.4 % (36.0-46.0); Hemoglobin 12.3 g/dL (12.2-16.2); Mean Corpuscular Hemoglobin 26.6 pg (28.0-32.0); Mean Corpuscular Volume 78.7 fL (80.0-100.0); Nucleated Red Blood Cells % 0.1 %
[2025-04-01 06:03] LABS: Alanine Aminotransferase 13 U/L (7-40); Albumin 4.0 g/dL (3.2-4.8); Alkaline Phosphatase 79 U/L (46-116); Anion Gap 8 (5-15); BUN/Creatinine Ratio 21.0 (10.0-20.0); Bilirubin, Total 0.5 mg/dL (0.2-1.0); Blood Urea Nitrogen 13 mg/dL (9-23); Carbon Dioxide 25 mmol/L (20-31); Glucose 99 mg/dL (74-106); Potassium 3.9 mmol/L (3.5-5.1); Sodium 142 mmol/L (136-145); Total Protein 7.2 g/dL (5.7-8.2)
[2025-04-01 06:08] LABS: Calcium 8.6 mg/dL (8.7-10.4); Chloride 109 mmol/L (98-107)
[2025-04-01] MEDS ORDERED: CIPR500T4 PO (08:49)
--- NOTE | 2025-04-01 08:58 | DVHDS2 ---
Discharge Summary Date of Admission Mar 31, 2025 at 07:20 Date of Discharge: Apr 01, 2025 Admitting Diagnosis Urinary tract infection Labs/Diagnostic Data: Laboratory Results Test 04/01/25 04:44 03/31/25 05:30 03/31/25 01:58 White Blood Count 10.0 10^3/uL (4.4-10.8) Red Blood Count 4.63 10^6/uL (4.0-5.20) Hemoglobin 12.3 g/dL (12.2-16.2) Hematocrit 36.4 % (36.0-46.0) Mean Corpuscular Volume 78.7 fL (80.0-100.0) Mean Corpuscular Hemoglobin 26.6 pg (28.0-32.0) Mean Corpuscular Hemoglobin Concent 33.8 g/dL (32.0-36.0) Red Cell Distribution Width 16.3 % (11.8-14.3) Platelet Count 321 10^3/uL (140-450) Mean Platelet Volume 7.4 fL (6.9-10.8) Neutrophils (%) (Auto) 62.3 % (37.0-80.0) Lymphocytes (%) (Auto) 25.2 % (10.0-50.0) Monocytes (%) (Auto) 8.3 % (0.0-12.0) Eosinophils (%) (Auto) 4.0 % (0.0-7.0) Basophils (%) (Auto) 0.2 % (0.0-2.0) Neutrophils # (Auto) 6.2 10 ^3/uL (1.6-8.6) Lymphocytes # (Auto) 2.5 10 ^3/uL (0.4-5.4) Monocytes # (Auto) 0.8 10 ^3/uL (0-1.3) Eosinophils # (Auto) 0.4 10 ^3/uL (0-0.8) Basophils # (Auto) 0 10 ^3/uL (0-0.2) Nucleated Red Blood Cells 0.1 % Sodium Level 142 mmol/L (136-145) Potassium Level 3.9 mmol/L (3.5-5.1) Chloride Level 109 mmol/L (98-107) Carbon Dioxide Level 25 mmol/L (20-31) Anion Gap 8 (5-15) Blood Urea Nitrogen 13 mg/dL (9-23) Creatinine 0.62 mg/dL (0.550-1.02) Glomerular Filtration Rate Calc 121 mL/min (>90) BUN/Creatinine Ratio 21.0 (10.0-20.0) Serum Glucose 99 mg/dL (74-106) Calcium Level 8.6 mg/dL (8.7-10.4) Total Bilirubin 0.5 mg/dL (0.2-1.0) Aspartate Amino Transferase (AST) 16 U/L (13-40) Alanine Aminotransferase (ALT) 13 U/L (7-40) Alkaline Phosphatase 79 U/L (46-116) Total Protein 7.2 g/dL (5.7-8.2) Albumin 4.0 g/dL (3.2-4.8) Urine Color Yellow (Yellow) Urine Clarity Turbid (Clear) Urine pH 6.0 (5.0-9.0) Urine Specific [place] 1.042 (1.001-1.035) Urine Protein 1+ (Negative) Urine Ketones Trace (Negative) Urine Blood Negative /uL (Negative) Urine Nitrite Negative (Negative) Urine Bilirubin Negative (Negative) Urine Urobilinogen Normal mg/dL (Negative) Urine Leukocyte Esterase 3+ /uL (Negative) Urine RBC None seen /hpf (0 - 4) Urine Microscopic WBC 124 /HPF (0-5) Urine Squamous Epithelial Cells Mod /hpf (<5) Urine Bacteria None seen /hpf (None Seen) Urine Mucus Moderate (None Seen) Urine Glucose Normal mg/dL (Normal) Urine Test Negative (Negative) Lactic Acid Level 1.0 mmol/L (0.4-2.0) Magnesium Level 2.1 mg/dL (1.6-2.6) Troponin I High Sensitivity < 3 ng/L (</=34) Lipase 44 U/L (12-53) Other Laboratory Tests 04/01/25 04:44 Brief Hx & Hospital Course: History of Present Illness 34 year old female presents to the emergency department with a chief complaint of abdominal pain onset 2 day. Patient states she has been experiencing upper abdominal pain as well as nausea, vomiting, diarrhea for the past 2 days. She noticed symptoms worsened the past 6 hours. She has been on Ozempic for the past 3 months, dose was raised to 1 mg 2 days ago, prior to symptoms. She noticed vomit is a dark red color, has about 3 episodes of N/V a day, diarrhea is black, has about 12 episodes a day. She has taken Tylenol, Imodium for symptoms with no improvement. Denies chest pain, shortness of breath, dizziness, fever, chills, dysuria, hematuria, recent travel, sick contact. No other symptoms or modifying factors present at this time. Course of hospitalization: Patient was started on IV antibiotic therapy, IV hydration. Patient had right upper quadrant ultrasound which was unremarkable other than hepatic steatosis. Patient has CT scan of the abdomen and pelvis without any acute pathology. Patient's white blood cell count has improved. Patient denies having any more diarrhea. Discussion was made with the patient's plan of care, for which she is agreeable to be discharged home and continued on oral antibiotic therapy with ciprofloxacin 500 mg p.o. b.i.d.. Patient will follow up with the PCP in 1-2 weeks. All questions answered Physical examination General: Alert and Oriented x3. No acute distress. Well-nourished. Eyes: EOMI. Anicteric. HENT: Moist mucous membranes. Lungs: Clear to auscultation bilaterally. No accessory muscle use. Cardiovascular: Regular rate and rhythm. No murmur. No JVD. Abdomen: Soft, non-tender and non-distended. No palpable masses. Extremities: No edema. Non-tender. Skin: No rashes or lesions. Warm. Neurologic: No focal neurological deficits. CN II-XII grossly intact, but not individually tested. Psychiatric: Cooperative. Appropriate mood and affect. Total time spent with patient discussing and formulating plan of care: 35 minutes. This medical document was created using an electronic medical record system with [employer] dictation system. Although this document has been carefully reviewed, there may still be some phonetic and typographical errors. These areas are purely typographical due to imperfections of the software programs, and do not reflect any compromise in the patient's medical care. Condition at Discharge: Fair Final Diagnosis/Problems List Sepsis secondary to UTI Secondary diagnosis: Obesity Probable gastroparesis secondary to GLP 1 injection diabetes mellitus Discharge Disposition: Home Discharge Instruct/Medications Diet: Consistent carbohydrate Activity: No Restrictions, As Tolerated Follow Up/Referral: PCP in 1-2 weeks Medications: Cipro 500mg po bid for 5 days Continue all home medications Scheduled Amlodipine Besylate (Norvasc Tablet), 10 MG PO DAILY, (Reported) Cholecalciferol (Vitamin D3), 50,000 UNIT PO QWEEKLY, (Reported) Ciprofloxacin Hcl (Ciprofloxacin Hcl), 1 TAB PO BID Scheduled PRN Ondansetron Odt 4MG Tab (Zofran Po), 4 MG PO Q8HPRN PRN 36 Discharge Statement: "Patient was advised to return to the ER or call 911 if any headaches, dizziness, shortness of breath, chest pain, abdominal pain, bleeding, fevers, or worsening of medical condition. Patient was counseled about treatment plan, medications, possible side effects, patientverbalized understanding. All questions were answered to the best of my ability. This discharge took greater then 30 minutes in planning, reviewing documentation, counseling the patient, and discussing with other team members." ASSESSMENT ASSESSMENT Assessment Sepsis secondary to UTI Date of Service: Apr 01, 2025 Billing Provider: LUBA RUTH NP Common Visit Codes: 05539-TOP/OBS DISCH DAY >30min LUBA RUTH NP Apr 01, 2025 08:58
[2025-04-01 09:00] VITALS: BP 138/68; PULSE 76; RESP 18; TEMP 97.8; O2SAT 98
[2025-04-01 10:07] VITALS: PULSE 78; RESP 16; O2SAT 98
[2025-04-01 12:03] VITALS: BP 120/78; PULSE 89; RESP 18; TEMP 98.4; O2SAT 97
== END 2025-04-01 12:28 | disposition home or self-care (01) | DRG 872 ==
LOC: ER 00:57 → OVERFLOW 07:20
PROVIDERS: ADMIT Nurse Practitioner Acute Care; ATTEND Nurse Practitioner Acute Care
DX: A41.9 Sepsis, unspecified organism (principal); N39.0 Urinary tract infection, site not specified; Z68.41 Body mass index [BMI] 40.0-44.9, adult; T50.995A Adverse effect of other drugs, medicaments and biological substances, initial encounter; K76.0 Fatty (change of) liver, not elsewhere classified; E11.43 Type 2 diabetes mellitus with diabetic autonomic (poly)neuropathy; K31.84 Gastroparesis; E66.9 Obesity, unspecified; Z79.899 Other long term (current) drug therapy; Z90.49 Acquired absence of other specified parts of digestive tract; Y92.89 Other specified places as the place of occurrence of the external cause
CPT/HCPCS: 36415; 74176; 76705; 80053; 81001; 81025; 83036; 83605; 83690; 83735; 84484; 85025; 87040; 87086; 96361; 96374; 96375; G0378; J2405; J2470